=== PATIENT | female | born 1965 | race Two or more races ===

== ENCOUNTER 2019-02-25 12:43 | Outpatient (CLI) | payer OTHER | END 2019-02-25 23:59 | disposition home or self-care (01) | LOC: CFH 12:43 | PROVIDERS: ATTEND Internal Medicine Cardiovascular Disease | DX: R07.89 Other chest pain (principal); R94.31 Abnormal electrocardiogram [ECG] [EKG] | CPT/HCPCS: 78452; 93017; A9502 ==